=== PATIENT | male | born 1985 | race Native Hawaiian/Other Pacific Islander ===

== ENCOUNTER 2016-05-07 07:58 | Emergency (ER) | payer OTHER ==
[~2016-05-07] VITALS: Ht 177.8 cm; Wt 99.8 kg
[2016-05-07 08:27] LABS: PLATELET COUNT 285 K/uL (142-355)
[2016-05-07 08:38] LABS: POTASSIUM 3.9 mmol/L (3.6-5.2); SODIUM 137 mmol/L (136-145)
[2016-05-07 10:25] VITALS: BP 116/67; TEMP 98
== END 2016-05-07 10:25 | disposition home or self-care (01) ==
LOC: ED 07:58
DX: M94.0 Chondrocostal junction syndrome [Tietze] (principal)
CPT/HCPCS: 36415; 80053; 80307; 81000; 82550; 84484; 85027; 86318; 93005; 99283; G0479

== ENCOUNTER 2016-10-29 20:06 | Emergency (ER) | payer OTHER ==
[~2016-10-29] VITALS: Ht 177.8 cm; Wt 86.2 kg
[2016-10-29 20:45] VITALS: BP 111/70; TEMP 97.9
== END 2016-10-29 21:29 | disposition home or self-care (01) ==
LOC: ED 20:06
DX: H92.01 Otalgia, right ear (principal)
CPT/HCPCS: 99281